=== PATIENT | female | born 1995 | race Caucasian/White ===

== ENCOUNTER 2024-04-25 12:50 | Emergency (ER) | payer MEDICAID ==
[~2024-04-25] VITALS: Ht 157.5 cm; Wt 126.0 kg
[2024-04-25 13:08] VITALS: BP 174/95; TEMP 97.9
[2024-04-25] MEDS: ipratropium/albuterol 3ml nebule NEB ONE (14:23)
[2024-04-25 14:25] VITALS: PULSE 79; RESP 16
[2024-04-25 14:31] VITALS: PULSE 81; RESP 16; O2SAT 99
[2024-04-25] MEDS ORDERED: BUDE10.22 INH (14:32)
[2024-04-25] MEDS ORDERED: ALBU8HFA INH (14:36)
[2024-04-25 15:05] VITALS: RESP 16
== END 2024-04-25 15:06 | disposition home or self-care (01) ==
LOC: ER 12:50
DX: J45.909 Unspecified asthma, uncomplicated (principal); R06.09 Other forms of dyspnea
CPT/HCPCS: 94640; 94760; 99283